=== PATIENT | male | born 1960 | race Caucasian/White ===

== ENCOUNTER 2016-05-11 12:07 | Emergency (ER) | payer OTHER ==
[~2016-05-11] VITALS: Ht 193 cm; Wt 107.3 kg
[2016-05-11 12:09] VITALS: BP 119/85; TEMP 97.8
== END 2016-05-11 13:43 | disposition home or self-care (01) ==
LOC: COL.ER 12:07
DX: R22.42 Localized swelling, mass and lump, left lower limb (principal); Z86.718 Personal history of other venous thrombosis and embolism